=== PATIENT | male | born 1965 | race Caucasian/White ===

== ENCOUNTER 2018-07-29 10:18 | Inpatient (IN) | payer BC, OTHER ==
[~2018-07-29] VITALS: Ht 170.2 cm; Wt 77.1 kg
--- NOTE | 2018-07-29 18:43 | NUR ---
PRE ASSESSMENT: A 52 year old man in intake with flushed complexion. Steady gait noted. BP 144/93 P 120 R 16 O2sat 95% He denies allergies but states Codeine upsets his stomach. He denies seizure Hx. He reports using Ambien 10 mg PO nightly x 2 years. Last used last night. he repoirts drinking 1 liter daily of Vodka daily and starts in the morning. he had 3 days of detox 3 months ago but otherwise has been drinking in this pattern for 2 years. He reports taking Percocet 10/325 mg twice a day for 2 weeks for dental work. He reports smoking 5 marijuana joints daily in this pattern for 2 years. He last drank at 3 am and smoked marijuana at the same time. Percocet last use was yesterday morning.[facility].
--- NOTE | 2018-07-29 20:25 | NUR ---
PRN Valium and Toradol IM administration Patient is anxious, restless, irritable, agitated, pacing, has bilateral hand tremors, hypervebal, rapid speech, emotionally volatile , sad ,impatient and generalized body aches . CIWA 21.
[2018-07-29] MEDS: KETOROLAC TROMETHAMINE 30 MG INJ IM PRN (20:27)
[2018-07-29] MEDS ORDERED: DIAZEPAM 10 MG TABLET PO ONE (20:30)
[2018-07-29] MEDS ORDERED: MAG HYDROX/AL HYDROX/SIMETH 30 ML LIQUID UDC PO PRN (20:45)
[2018-07-29] MEDS ORDERED: MAGNESIUM HYDROXIDE 30 ML LIQUID UDC PO PRN (20:45)
[2018-07-29] MEDS ORDERED: IBUPROFEN 600 MG TABLET PO PRN (20:45)
[2018-07-29] MEDS ORDERED: ONDANSETRON 4 MG/2 ML VIAL IM PRN (20:45)
[2018-07-29] MEDS ORDERED: LOPERAMIDE HCL 2 MG CAPSULE PO PRN ×2 (20:45)
[2018-07-29] MEDS ORDERED: DIAZEPAM 10 MG TABLET PO PRN ×2 (20:45)
[2018-07-29] MEDS ORDERED: THIAMINE HCL 200 MG/2 ML VIAL IM ONE (20:45)
[2018-07-29] MEDS ORDERED: ONDANSETRON ODT 4 MG TAB.RAPDIS SL PRN (20:45)
[2018-07-29] MEDS ORDERED: DIAZEPAM 5 MG TABLET PO PRN (20:45)
[2018-07-29] MEDS ORDERED: CELE200C PO (20:48)
[2018-07-29] MEDS ORDERED: GABA-534 PO (20:48)
[2018-07-29 20:53] LABS: *AMPHETAMINE, URINE NEGATIVE (NEGATIVE); *BARBITURATE, URINE NEGATIVE (NEGATIVE); *CANNABINOID, URINE POSITIVE (NEGATIVE); *COCCAINE, URINE NEGATIVE (NEGATIVE); *OPIATE, URINE NEGATIVE (NEGATIVE); *PHENCYCLIDINE SCREEN,URINE NEGATIVE (NEGATIVE)
--- NOTE | 2018-07-29 20:55 | NUR ---
PRN Toradol IM re-assessment Patient states Toradol IM helpful and effective. Pain is lessened
[2018-07-29] MEDS: GABAPENTIN 300 MG CAPSULE PO SCH (21:05)
[2018-07-29 21:41] LABS: BASOPHILS # (AUTO) 0.1 K/uL (0.0-8.0); BASOPHILS % (AUTO) 1.3 % (0.0-2.0); EOSINOPHILS # (AUTO) 0.1 K/uL (0.0-0.7); EOSINOPHILS % (AUTO) 1.2 % (0.0-7.0); HEMATOCRIT 41.6 % (36.7-47.1); LYMPHOCYTES # (AUTO) 2.7 K/uL (20.0-40.0); LYMPHOCYTES % (AUTO) 37.4 % (20.5-51.5); MEAN CORPUSCULAR HEMOGLOBIN 34.4 uug (23.8-33.4); MEAN CORPUSCULAR HGB CONC 34 g/dL (32.5-36.3); MEAN CORPUSCULAR VOLUME 101.8 fL (73.0-96.2); MONOCYTES # (AUTO) 0.8 K/uL (2.0-10.0); MONOCYTES % (AUTO) 10.5 % (0.0-11.0); NEUTROPHILS # (AUTO) 3.6 K/uL (1.8-8.9); NEUTROPHILS % (AUTO) 49.6 % (38.5-71.5); PLATELET COUNT (AUTO) 254 K/uL (152-348); RED BLOOD CELL COUNT(AUTO) 4.08 MIL/uL (4.06-5.63); WHITE BLOOD COUNT (AUTO) 7.3 K/uL (3.6-10.2)
[2018-07-29 21:54] LABS: ETHANOL < 3 MG/DL (0-0)
[2018-07-29 22:13] LABS: THYROID STIMULATING HORMONE 1.475 mIU/mL (0.358-3.740)
[2018-07-29 22:15] LABS: ALANINE AMINOTRANSFERASE 40 U/L (16-63); ALKALINE PHOSPHATASE 69 U/L (50-136); AMYLASE 30 U/L (25-115); ASPARTATE AMINOTRANSFERASE 20 U/L (15-37); BILIRUBIN,TOTAL 0.3 mg/dL (0.2-1.0); CARBON DIOXIDE 27 mmol/L (21-32); CHLORIDE 104 mmol/L (98-107); CREATININE 1.1 mg/dL (0.6-1.3); GLUCOSE 119 mg/dL (74-106); LIPASE 109 U/L (73-393); MAGNESIUM 1.6 mg/dL (1.8-2.4); POTASSIUM 3.7 mmol/L (3.5-5.1); TOTAL PROTEIN, SERUM 6.6 g/dL (6.4-8.2); UREA NITROGEN, BLOOD 20 mg/dL (7-18)
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
[2018-07-29] MEDS ORDERED: MAGNESIUM OXIDE 400 MG TABLET PO ONE (22:35)
[2018-07-29] MEDS ORDERED: TRAZODONE 50 MG TABLET PO ONE (22:35)
[2018-07-30] VITALS: BP 142/80
--- NOTE | 2018-07-30 | NUR ---
CIWA deferred Patient lying in bed with eyes closed. Respiration even and unlabored. Will continue to monitor.
--- NOTE | 2018-07-30 03:55 | NUR ---
[facility] assessment/Behavior note Patient is anxious, restless, irritable, agitated, flushed face and has bilateral hand tremors. Patient was disrespectful and argumentative with staff when he was told that he can't wear his robe downstairs. Patient was also turning the volume of the TV way too high. Educate patient on unit and smoking policies. Addendum: 07/30/18 at 0651 by DEIRDER CONNORS LVN [facility] 18
[2018-07-30 04:00] VITALS: BP 153/94
[2018-07-30] MEDS: KETOROLAC TROMETHAMINE 30 MG INJ IM PRN (04:00)
--- NOTE | 2018-07-30 04:00 | NUR ---
PRN Valium and Toradol IM administration Patient is anxious, restless, irritable, agitated, flushed face and has bilateral hand tremors. Patient c/o generalized body aches. CIWA 18.
--- NOTE | 2018-07-30 04:30 | NUR ---
PRN Toradol IM re-assessment Patient states Toradol helpful and effective. Pain lessened
--- NOTE | 2018-07-30 05:00 | NUR ---
[facility] assessment / Valium re-assessment Patient in the room. Patient states Valium helpful and effective. Still anxious but will try to go back to sleep. Addendum: 07/30/18 at 0657 by DEIRDRE CONNORS LVN [facility] 11 at this time.
--- NOTE | 2018-07-30 07:12 | NUR ---
End of shift note Patient slept 4 hours. Fluid intake 2,037. Patient alert and oriented x 4. Patient presented with anxiety, restlessness, irritability, agitation, argumentative, impatient, demanding and impatient. Patient's CIWA upon admission was 21. He was c/o generalized body aches. One time Valium and Toradol IM given, effective. CIWA went down to 14. At 0355, patient woke up anxious, restless , irritable, agitated and c/o body aches. PRN Valium and Toradol IM given. CIWA 18. CIWA went down to 11. Patient report PMH of sleep apnea but refused to use hospital C-PAP. Educate patient on unit policies. Encouraged fluids. Will continue to monitor.
[2018-07-30] MEDS ORDERED: 5 DAY TAPER OF LORAZEPAM -SERENITY PROTOCOL PO PRN (07:15)
--- NOTE | 2018-07-30 07:30 | NUR ---
Start of Shift Head Pumper received report on 52 year old male admitted to [facility] on 07/29/18 for medical management of ETOH, Opiate and Ambien withdrawal. Pt endorses allergies to Codeine, full code and regular diet. PMH to include sleep apnea, and multiple surgeries. Pt to be started an Ativan taper this morning, last CIWA 11. Pt had a OT order of 20 mg of Valium and PRN Toradol IM(Pain) x2 and 20mg Valium(withdrawals) on NOC, per report. Head Pumper encounters pt at nurses station. Pt is A/O x4 and makes his needs known. Pt is irritable, angry and easily agitated. Pt is demanding and entitled. Pt complains of pain and , I am withdrawing. Pt focused on pain medication. Pt with an angry affect and congruent mood. Clear thought and speech process. Bed in low position, with wheels locked and side rails up x2. Will continue to monitor, support and encourage according to plan of care.
--- NOTE | 2018-07-30 08:00 | NUR ---
CIWA 12 Pt is irritable, anxious, restless, tremulous and diaphoretic with complaints of generalized body aches. Will continue to monitor, support and encourage according to plan of care.
[2018-07-30 08:07] VITALS: BP 136/93
[2018-07-30] MEDS: THIAMINE HCL 100 MG TABLET PO SCH (08:17)
[2018-07-30] MEDS: MULTIVITAMINS,THERAPEUTIC TABLET PO SCH (08:17)
[2018-07-30] MEDS: FOLIC ACID 1 MG TABLET PO SCH (08:17)
[2018-07-30] MEDS: GABAPENTIN 300 MG CAPSULE PO SCH ×3 (08:17→17:00)
[2018-07-30] MEDS ORDERED: LORAZEPAM 1 MG TABLET PO SCH (09:00)
[2018-07-30] MEDS ORDERED: 5 DAY TAPER VALIUM-SERENITY PROTOCOL PO PRN (09:00)
[2018-07-30] MEDS ORDERED: MAGNESIUM OXIDE 400 MG TABLET PO ONE (09:00)
[2018-07-30] MEDS ORDERED: TUBERCULIN,PURIF.PROT.DERIV. 5 TU/0.1 ML TEST ID ONE (09:00)
[2018-07-30 12:45] VITALS: BP 131/86
--- NOTE | 2018-07-30 13:03 | NUR ---
CIWA 16 Pt is diaphoretic, tremulous, anxious, restless and has complaints of nausea and tactile hallucinations. Will continue to monitor, support and encourage according to plan of care.
[2018-07-30] MEDS ORDERED: 3 DAY TAPER OF VALIUM-SERENITY PROTOCOL PO PRN (13:15)
[2018-07-30] MEDS: DIAZEPAM 10 MG TABLET PO SCH ×2 (14:29→20:07)
[2018-07-30] MEDS: CELECOXIB 200 MG CAPSULE PO PRN ×2 (14:29→23:17)
[2018-07-30] MEDS ORDERED: KETOROLAC TROMETHAMINE 30 MG INJ IM PRN (14:30)
[2018-07-30] MEDS ORDERED: DIAZEPAM 5 MG TABLET PO PRN (14:30)
[2018-07-30] MEDS ORDERED: DIAZEPAM 10 MG TABLET PO PRN ×2 (14:30)
[2018-07-30] MEDS: HYDROXYZINE PAMOATE 25 MG CAPSULE PO PRN (14:32)
[2018-07-30] MEDS: CLONIDINE HCL 0.1 MG TABLET PO PRN (14:33)
--- NOTE | 2018-07-30 14:33 | NUR ---
PRN Medication Pt. in room presenting with anxiety and agitation. Pt. given PRN clonidine and vistaril at this time to manage withdrawal symptoms. Will continue to monitor pt.'s behavior for safety, and medication effectiveness.
[2018-07-30] MEDS: KETOROLAC TROMETHAMINE 60 MG INJ IM PRN (15:21)
--- NOTE | 2018-07-30 15:21 | NUR ---
PRN Medication and Re-Assessment Pt. in room and reports a decreased in anxiety but reports 8/10 back pain. PRN Toradol Im given at this time to manage pain. Will continue to monitor pt. for safety and medication effectiveness.
[2018-07-30 16:00] VITALS: BP 122/76
--- NOTE | 2018-07-30 16:00 | NUR ---
CIWA deferred/Medication Re-Assessment Pt. in room laying in bed with his eyes closed. No signs of SOB noted. CIWA assessment deferred. Toradol medication effective. Will continue to monitor pt. for safety.
--- NOTE | 2018-07-30 19:21 | NUR ---
End of Shift Note Pt. is a 52 y/o male admitted for the medically managed withdrawal from ETOH. Pt. was initially placed on an ativan taper to manage withdrawal symptoms but was re-assessed today by MD and switched to a valium taper. PRN vistaril, celebrex, clonidine and toradol given to manage withdrawal symptoms. Pt. presented with anxiety, agitation and restlessness throughout shift. Safety measures in place. Will endorse pt.'s care to oncoming shift.
--- NOTE | 2018-07-30 19:24 | NUR ---
Start of shift note Received report from day shift nurse. Pt is a 52 yo male, A+Ox4, presenting to [facility] for medically supervised ETOH/Opiate withdrawal. Pt noted with anger, agitation, anxiety, restlessness, and irritability. Pt has HX of anxiety, depression, PTSD, bipolar, and sleep apnea which will be monitored during shift. Pt is on 5 day Valium taper, tolerated well. Respirations even and unlabored. Will continue to monitor.
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
[2018-07-30] MEDS: SERTRALINE HCL 100 MG TABLET PO SCH (20:07)
[2018-07-30 20:11] VITALS: BP 127/79
--- NOTE | 2018-07-30 20:11 | NUR ---
CIWA Assessment CIWA: 13. Pt noted with fine tremors, sweat on brow, anxiety, agitation, and itchiness. Respirations even and unlabored. Will continue to monitor.
[2018-07-30] MEDS: diphenhydrAMINE 50 MG CAPSULE PO PRN (23:16)
--- NOTE | 2018-07-30 23:16 | NUR ---
PRN Benadryl and Celebrex Pt c/o generalized pain 6/10 and inability to sleep. PRN Benadryl and Celebrex given and tolerated well. Will reassess within 1 HR. Will continue to monitor.
--- NOTE | 2018-07-31 00:16 | NUR ---
PRN Benadryl and Celebrex Reassessment Medications effective. Pt is resting well in bed. Pt expresses a reduction of pain to 3/10. No s/s of ASE noted at this time. Respirations even and unlabored. Will continue to monitor.
--- NOTE | 2018-07-31 00:54 | NUR ---
V/S refused and CIWA Assessment deferred for sleep. Respirations even and unlabored. Will continue to monitor.
[2018-07-31] MEDS: KETOROLAC TROMETHAMINE 60 MG INJ IM PRN (03:40)
--- NOTE | 2018-07-31 03:40 | NUR ---
PRN Toradol Pt c/o back pain 05/16 and requested for PRN Toradol. Medication given and tolerated well. Will reassess within 1 HR. Will continue to monitor.
--- NOTE | 2018-07-31 04:15 | NUR ---
PRN Toradol Reassessment Pt expresses reduction of back pain to 4/10. No s/s of ASE noted at this time. Respirations even and unlabored. Will continue to monitor.
--- NOTE | 2018-07-31 04:47 | NUR ---
V/S refused and CIWA Assessment deferred for sleep. Respirations even and unlabored. Will continue to monitor.
--- NOTE | 2018-07-31 06:49 | NUR ---
End of shift note Pt was continuously noted with irritability, anger, restlessness, anxiety, and agitation. Pt remained in room for majority of shift except to get food from kitchen. Pt remained mildly cooperative and compliant with all aspects of treatment. Pt was given PRN Benadryl and Celebrex @2316 and PRN Toradol @0340. Pt remains on 3 day Valium taper, tolerated well. Pt slept for a total of 6 HRS. Last CIWA: 13 @2010. Respirations even and unlabored. Will endorse to day shift nurse.
[2018-07-31 08:00] VITALS: BP 162/105
--- NOTE | 2018-07-31 08:00 | NUR ---
START OF SHIFT Pt 52 y/o male admitted for etoh withdrawal. Pt received in room awake. Pt alert and oriented to name, place, and time. Perrla. Skin warm and moist to touch. Respirations even and unlabored. Appears disheveled and unkempt. Food all over the floor, scattered. Clothes and empty drink bottles scattered throughout the room. Ketchup on door handles noted. Encouraged to maintain safety. Anxious and restless. Raising voice and said, " No! You're not my nurse! he said!", after introducing myself to pt this morning. Very agitated and irritable. Ciwa=14 @0800. It was reported that pt slept for 6 hours last night. Last ciwa=13 @ 1999. Pt is on a 3 day valium taper and is on day 2. Bed on lowest position with side rails x 2 up for safety. Call light within reach.
--- NOTE | 2018-07-31 08:00 | NUR ---
CIWA ASSESSMENT CIWA=14. Anxious and restless. Hyperverbal and pressured speech. Very agitated and restless. Complaints of generalized discomfort and body aches. Bilateral hand tremors noted.
[2018-07-31] MEDS: CELECOXIB 200 MG CAPSULE PO PRN (08:20)
[2018-07-31] MEDS: DIAZEPAM 5 MG TABLET PO SCH ×3 (08:20→20:09)
[2018-07-31] MEDS: CLONIDINE HCL 0.1 MG TABLET PO PRN (08:21)
[2018-07-31] MEDS: GABAPENTIN 300 MG CAPSULE PO SCH ×3 (08:21→17:12)
[2018-07-31] MEDS: HYDROXYZINE PAMOATE 25 MG CAPSULE PO PRN (08:21)
--- NOTE | 2018-07-31 08:24 | NUR ---
PRN CATAPRES CELEBREX VISTARIL xp=490/105. Catapres po prn per MD order given. Complaints of generalized arthritic pain 03/16. Celebrex po prn per MD order given Anxious and restless. Agitated and irritable. Vistaril po prn per MD order given and tolerated well.
[2018-07-31] MEDS: THIAMINE HCL 100 MG TABLET PO SCH (09:00)
[2018-07-31] MEDS: FOLIC ACID 1 MG TABLET PO SCH (09:00)
[2018-07-31] MEDS: MULTIVITAMINS,THERAPEUTIC TABLET PO SCH (09:00)
[2018-07-31] MEDS ORDERED: LORAZEPAM 1 MG TABLET PO SCH (09:00)
--- NOTE | 2018-07-31 09:24 | NUR ---
PRN CELEBREX VISTARIL CATAPRES EVAL cs=884/92. Pt states vistaril slightly effective Pt states pain /10.
--- NOTE | 2018-07-31 10:50 | NUR ---
Therapist prompted client to attend group therapy.
[2018-07-31 12:00] VITALS: BP 113/92
--- NOTE | 2018-07-31 12:00 | NUR ---
CIWA ASSESSMENT ciwa=14. Bilateral hand tremors. Anxious and restless. Pacing. Irritable and agitated. Periodically yells at staff. Observed cursing at self in room. Complaints of generalized discomfort.
--- NOTE | 2018-07-31 13:18 | NUR ---
NSG ENTRY Pt yelling in hallway, " these aren't my clothes! HELLO! HELLO! HELLO!", as he was carrying clothes and just the clothes on the floor of the hallway, then turned around and walked back to room continuing to yell, " incompetence! Stupidity!". Irrationale, would not let staff speak and pt just kept talking over staff. When pt was back in room, he continued to yell and throw more clothes on the floor and by the trash can in room. Hard to redirect.
[2018-07-31] MEDS ORDERED: QUETIAPINE FUMARATE 100 MG TABLET PO ONE (13:45)
[2018-07-31 14:39] LABS: HEPATITIS B SURFACE AG Negative (Negative)
[2018-07-31 16:00] VITALS: BP 118/78
--- NOTE | 2018-07-31 16:00 | NUR ---
CIWA ASSESSMENT CIWA=14. Anxious and restless. Hyperverbal and pressured speech. Periods of agitation and irritability. Complaints of generalized discomfort and body aches. Bilateral hand tremors noted. Intermittent perspiration.
--- NOTE | 2018-07-31 18:44 | NUR ---
END OF SHIFT Pt 52 y/o male admitted for etoh withdrawal. Pt alert and oriented to name, place, and time. Perrla. Skin warm and moist to touch. Respirations even and unlabored. Appears disheveled and unkempt. Food, clothes, and empty drink bottles scattered throughout the room. Encouraged to maintain hygiene. Anxious and restless. Periods of agitation and irritability today. Isolative to room with minimal peer interaction. Pt selective with group activity. Ciwa=14 @1600. Pt is on a 3 day valium taper and is on day 2. Bed on lowest position with side rails x 2 up for safety. Call light within reach.
--- NOTE | 2018-07-31 19:14 | NUR ---
Start of shift note Received report from day shift nurse. Pt is a 52 yo male, A+Ox4, presenting to [facility] for medically supervised ETOH/Opiate withdrawal. Pt noted with restlessness, anxiety, and agitation. Pt has HX Of anxiety, depression, PTSD, bipolar disorder, inguinal hernia, sleep apnea, and multiple surgeries which will be monitored during shift. Pt is on 3 day Valium taper, tolerated well. Respirations even and unlabored. Will continue to monitor.
[2018-07-31] MEDS: SERTRALINE HCL 100 MG TABLET PO SCH (20:09)
[2018-07-31 20:14] VITALS: BP 121/64
--- NOTE | 2018-07-31 20:14 | NUR ---
CIWA Assessment CIWA: 11. Pt noted with fine tremors, sweat, anxiety, and agitation. Respirations even and unlabored. Will continue to monitor.
--- NOTE | 2018-08-01 00:38 | NUR ---
V/S refused and CIWA Assessment deferred for sleep. Respirations even and unlabored. Will continue to monitor.
[2018-08-01] MEDS: KETOROLAC TROMETHAMINE 60 MG INJ IM PRN ×2 (02:30→16:32)
[2018-08-01] MEDS: diphenhydrAMINE 50 MG CAPSULE PO PRN (02:30)
--- NOTE | 2018-08-01 02:30 | NUR ---
PRN Benadryl and Toradol Pt c/o inability to sleep and upper back/neck pain 05/16 and requested for PRN Benadryl and Toradol. Medications given and tolerated well. Will reassess within 1 HR. Will continue to monitor.
--- NOTE | 2018-08-01 03:29 | NUR ---
PRN Benadryl and Toradol Reassessment Medications effective. Pt expresses reduction of pain to 4/10. Pt is resting well in bed. No s/s of ASE noted at this time. Respirations even and unlabored. Will continue to monitor.
--- NOTE | 2018-08-01 04:48 | NUR ---
V/S refused and CIWA Assessment deferred for sleep. Respirations even and unlabored. Will continue to monitor.
--- NOTE | 2018-08-01 07:00 | NUR ---
End of shift note Pt was continuously noted with restlessness, anxiety, and agitation. Pt remained in room for majority of shift except to get food from kitchen and to go smoke on smoking patio. Pt remained cooperative and compliant with all aspects of treatment. Pt was given PRN Benadryl and Toradol @0230. Pt remains on 3 day Valium taper, tolerated well. Pt slept for a total of 6 HRS. Last CIWA: 11 @2013. Respirations even and unlabored. Will endorse to day shift nurse.
[2018-08-01 08:00] VITALS: BP 157/101
--- NOTE | 2018-08-01 08:00 | NUR ---
START OF SHIFT Pt 52 y/o male admitted for etoh withdrawal. Pt received in room on bed awake watching television. Pt alert and oriented to name, place, and time. Perrla. Resppirations even and unlabored. Appears disheveled and unkempt. Clothes, food wrappings, blankets, and drink bottles ( both full and empty) scattered throughout the floor. Encouraged to maintain hygiene. Anxious and restless. Irritable and agitated. Pressured speech. Labile. Bilateral hand tremors noted. Generalized body aches and discomfort. ciwa=12@0800. It was reported that pt slept for 6 hours last night. Pt is on a 3 day valium taper and is on day 3. Last ciwa =11 @1999. Bed on lowest position with side rails x2 up for safety. Call light within reach.
[2018-08-01] MEDS: CELECOXIB 200 MG CAPSULE PO PRN ×2 (08:27→16:27)
[2018-08-01] MEDS: GABAPENTIN 300 MG CAPSULE PO SCH ×3 (08:27→16:25)
[2018-08-01] MEDS: HYDROXYZINE PAMOATE 25 MG CAPSULE PO PRN (08:27)
[2018-08-01] MEDS: CLONIDINE HCL 0.1 MG TABLET PO PRN (08:28)
[2018-08-01] MEDS: QUETIAPINE FUMARATE 25 MG TABLET PO PRN ×3 (08:32→16:37)
--- NOTE | 2018-08-01 08:32 | NUR ---
PRN SEROQUEL Pt agitated and irritable. Seroquel prn per MD order given .
--- NOTE | 2018-08-01 08:35 | NUR ---
PRN CELEBREX VISTARIL CATAPRES Pt with c/o arhritic pain 03/16. Celebrex po prn per MD order given and tolerated well. Anxious and restless. Vistaril po prn per MD order given. lm=024/105. catapres po prn per MD order given.
[2018-08-01] MEDS ORDERED: LORAZEPAM 1 MG TABLET PO SCH (09:00)
[2018-08-01] MEDS ORDERED: DIAZEPAM 5 MG TABLET PO SCH (09:00)
[2018-08-01] MEDS: THIAMINE HCL 100 MG TABLET PO SCH (09:00)
[2018-08-01] MEDS: MULTIVITAMINS,THERAPEUTIC TABLET PO SCH (09:00)
[2018-08-01] MEDS: FOLIC ACID 1 MG TABLET PO SCH (09:00)
--- NOTE | 2018-08-01 09:32 | NUR ---
PRN SEROQUEL EVAL pt states medication effective.
[2018-08-01 12:00] VITALS: BP 136/92
--- NOTE | 2018-08-01 12:00 | NUR ---
CIWA ASSESSMENT ciwa=12. Bilateral hand tremors noted. Intermittent perspiration. Anxious and restless. Pressured speech. Irritable and agitated.
--- NOTE | 2018-08-01 12:38 | NUR ---
PRN SEROQUEL Pt agitated and irritable. Seroquel po prn per MD order given .
--- NOTE | 2018-08-01 13:38 | NUR ---
PRN SEROQUEL EVAL Pt states medication effective.
[2018-08-01] MEDS ORDERED: DIAZEPAM 5 MG TABLET PO PRN (15:15)
[2018-08-01] MEDS: DIAZEPAM 5 MG TABLET PO SCH ×2 (15:39→23:47)
[2018-08-01 16:00] VITALS: BP 137/89
--- NOTE | 2018-08-01 16:00 | NUR ---
CIWA ASSESSMENT ciwa=12. Anxious and restless. Pressured speech. Pacing. Easily irritable and agitated. Intermittent perspiration. Bilateral hand tremors. Complaints of generalized discomfort and body aches.
--- NOTE | 2018-08-01 18:25 | NUR ---
END OF SHIFT Pt 52 y/o male admitted for etoh withdrawal. Pt alert and oriented to name, place, and time. Perrla. Skin warm and moist to touch. Respirations even and unlabored. Appears disheveled and unkempt. Food, clothes, and empty drink bottles scattered throughout the room floor. Malodorous. Encouraged to maintain hygiene. Anxious and restless. Periods of irritability today. Pacing. Bilateral hand tremors. Intermittent perspiration Isolative to room with minimal peer interaction. Low motivation for self care. Pt selective with group activity. Ciwa=12 @1600. Pt is on a modified valium taper and is on day 3. Bed on lowest position with side rails x 2 up for safety. Call light within reach.
--- NOTE | 2018-08-01 19:12 | NUR ---
Start of shift note Received report from day shift nurse. Pt is a 52 yo male, A+Ox4, presenting to [facility] for medically supervised ETOH/Opiate withdrawal. Pt noted with fatigue, anxiety, and agitation. Pt has HX of anxiety, depression, PTSD, bipolar disorder, inguinal hernia, sleep apnea, and multiple surgeries which will be monitored during shift. Pt is on 3 day Valium taper, tolerated well. Respirations even and unlabored. Will continue to monitor.
[2018-08-01 20:12] VITALS: BP 142/92
--- NOTE | 2018-08-01 20:12 | NUR ---
CIWA Assessment CIWA: 11. Pt noted with fine tremors, sweat on brow, anxiety, and agitation. Respirations even and unlabored. Will continue to monitor.
[2018-08-01] MEDS: SERTRALINE HCL 100 MG TABLET PO SCH (23:47)
--- NOTE | 2018-08-02 00:57 | NUR ---
V/S refused and CIWA Assessment deferred for sleep. Respirations even and unlabored. Will continue to monitor.
--- NOTE | 2018-08-02 04:20 | NUR ---
V/S refused and CIWA assessment deferred for sleep. Respirations even and unlabored. Will continue to monitor.
--- NOTE | 2018-08-02 07:00 | NUR ---
End of shift note Pt was continuously noted with fatigue, agitation, and anxiety. Pt remained in room for majority of shift except to go smoke on smoking patio and to get food from kitchen. Pt remained cooperative and compliant with all aspects of treatment. Pt was not given any PRN medications during shift. Pt remains on 3 day Valium taper, tolerated well. Pt slept for a total of 7 HRS. Last CIWA: 11 @2011. Respirations even and unlabored. Will endorse to day shift nurse.
--- NOTE | 2018-08-02 07:15 | NUR ---
Start of Shift Pt. is a 52 y/o male admitted for the medically managed withdrawal from ETOH. Pt. is currently on a valium taper to manage his withdrawal symptoms. Endorse from previous shift pt. presented anxiety, and agitation. Received pt. in room. Encourage pt. to verbalize concerns and emotions. Educated pt. on treatment plan and medication regiment. Pt. stated Dude I dont care about any of that, I need to go down to smoke. Safety measures in place. Will continue to monitor pt.s behavior for safety.
[2018-08-02 08:00] VITALS: BP 107/67
--- NOTE | 2018-08-02 08:00 | NUR ---
CIWA Assessment CIWA of 10. Pt. in room presenting with anxiety and agitation. Will give medications as ordered. Will continue to monitor pt.'s behavior for safety.
[2018-08-02] MEDS: QUETIAPINE FUMARATE 25 MG TABLET PO PRN ×2 (08:47→21:16)
[2018-08-02] MEDS: GABAPENTIN 300 MG CAPSULE PO SCH ×3 (08:47→16:37)
[2018-08-02] MEDS: THIAMINE HCL 100 MG TABLET PO SCH (08:47)
[2018-08-02] MEDS: DIAZEPAM 5 MG TABLET PO PRN ×2 (08:47→21:22)
[2018-08-02] MEDS: MULTIVITAMINS,THERAPEUTIC TABLET PO SCH (08:47)
[2018-08-02] MEDS: FOLIC ACID 1 MG TABLET PO SCH (08:47)
[2018-08-02] MEDS: HYDROXYZINE PAMOATE 25 MG CAPSULE PO PRN (08:47)
[2018-08-02] MEDS: CLONIDINE HCL 0.1 MG TABLET PO PRN ×2 (08:47→21:16)
[2018-08-02] MEDS: KETOROLAC TROMETHAMINE 60 MG INJ IM PRN (08:49)
--- NOTE | 2018-08-02 08:50 | NUR ---
PRN Medication Pt. in room complaining of increased anxiety and low back pain. PRN Valium, Vistaril, Clonidine, Seroquel, and Toradol given at this time per MD order to manage pt.'s symptoms. Will continue to monitor pt.'s behavior for safety and medication effectiveness.
[2018-08-02] MEDS ORDERED: LORAZEPAM 1 MG TABLET PO SCH (09:00)
--- NOTE | 2018-08-02 09:30 | NUR ---
PRN Re-Assessment Pt. in room laying down watching television in his bed. Medication effective. Will continue to monitor pt.'s behavior for safety.
--- NOTE | 2018-08-02 11:11 | NUR ---
Prompted Group Explained risk and benefits of not attending group X 3. Pt. still refused to attend. Will continue to monitor pt.'s behavior for safety
[2018-08-02] MEDS ORDERED: HYDROXYZINE PAMOATE 25 MG CAPSULE PO ONE (11:15)
[2018-08-02 12:00] VITALS: BP 134/87
--- NOTE | 2018-08-02 12:00 | NUR ---
CIWA Assessment CIWA of 10. Pt. in room presenting with anxiety and agitation. Pt. compliant with medication regiment. Will continue to monitor pt.'s behavior for safety.
[2018-08-02 16:00] VITALS: BP 150/90
--- NOTE | 2018-08-02 16:00 | NUR ---
CIWA Assessment CIWA of 8. Pt. in room presenting with anxiety and agitation. Pt. compliant with medication regiment. Will continue to monitor pt.'s behavior for safety.
[2018-08-02] MEDS: CELECOXIB 200 MG CAPSULE PO PRN (16:36)
--- NOTE | 2018-08-02 16:36 | NUR ---
PRN Medication Pt. reporting increased discomfort from his arthritis. PRN Celebrex at this time to manage symptoms. Will continue to monitor pt.'s behavior for safety and medication effectiveness.
--- NOTE | 2018-08-02 17:15 | NUR ---
PRN Re-Assessment Pt. reports a decreased in discomfort. Medication effective. Will continue to monitor pt.'s behavior for safety.
--- NOTE | 2018-08-02 19:07 | NUR ---
Start of Shift Pt. is a 52 y/o male admitted for the medically managed withdrawal from ETOH. Pt. completed his valium taper and is currently only PRN medications. Throughout shift pt. presented anxiety, and agitation. Pt. compliant with treatment plan and medication regiment. Safety measures in place. Will endorse pt.s care to oncoming shift.
--- NOTE | 2018-08-02 19:50 | NUR ---
Start of Shift Note Received a 52 y/o male px, admitted for medically supervised withdrawal from ETOH, benzo and opiates. He also uses marijuana. He was placed on 3 day Valium taper, started on 07/30/2018. Last reported CIWA 8 by AM shift nurse. During the rounds at 1950, px is awake on bed in fowlers position, watching TV. Px appears anxious and depressed. He is disheveled and unshaven. Snacks and different kind of drinks noted on top of the bed side table. He states that his anxiety is 7/10 with LBP of 8/10. Px asked for sleeping medication later tonight. Bed on lowest position, side rails up 2x and call light within reach. Well continue to monitor.
[2018-08-02 20:00] VITALS: BP 154/93
--- NOTE | 2018-08-02 20:00 | NUR ---
CIWA 11 Upon assessment, px appears anxious and depressed. He states that his anxiety is 7/10 with LBP of 8/10. Px asked for sleeping medication later tonight. will continue to monitor.
[2018-08-02] MEDS: KETOROLAC TROMETHAMINE 30 MG INJ IM PRN (21:16)
[2018-08-02] MEDS: SERTRALINE HCL 100 MG TABLET PO SCH (21:16)
--- NOTE | 2018-08-02 21:16 | NUR ---
PRN medications He received Toradol 30 mg IM for LBP of 05/16, Seroquel 50 mg PO for insomnia, Clonidine 0.1 mg PO for anxiety and at 2121, he received Valium 5 mg PO for agitation. will continue to monitor
--- NOTE | 2018-08-02 21:50 | NUR ---
PRN Toradol reassessment Px states that his LBP improved a little, from 8/10 to 610. will continue to monitor
--- NOTE | 2018-08-02 22:30 | NUR ---
PRN Seroquel, Valium and Clonidine reassessment On reassessment, don is still awake on bed. He states that his anxiety improved a little from 7/10 to 5-6/10. He is about to sleep in a little while. will continue to monitor
--- NOTE | 2018-08-03 | NUR ---
CIWA deferred CIWA deferred due to the px is asleep and he refused VS. To reassess if the px is awake per doctor's order. will continue to monitor
[2018-08-03] MEDS: diphenhydrAMINE 50 MG CAPSULE PO PRN (01:58)
[2018-08-03] MEDS: HYDROXYZINE PAMOATE 25 MG CAPSULE PO PRN ×2 (01:58→08:28)
--- NOTE | 2018-08-03 01:58 | NUR ---
PRN Benadryl and Vistaril Px received Benadryl 50 mg PO and Vistaril 50 mg PO for insomnia. To reassess after an hour
[2018-08-03] MEDS: QUETIAPINE FUMARATE 25 MG TABLET PO PRN ×2 (02:24→14:36)
--- NOTE | 2018-08-03 02:24 | NUR ---
PRN Seroquel Px demanded to get more Benadryl. Px states that he is taking 4 capsules of Benadryl at home and 1 capsule will not make him sleepy. Seroquel 50 mg q4H PO given for insomnia. to reassess after an hour
--- NOTE | 2018-08-03 07:05 | NUR ---
End of Shift Note During the shift at 2115, px received Toradol 30 mg IM, Seroquel 50 mg PO for insomnia and Clonidine 0.1 mg PO fro anxiety. They were effective. At 2121, he received valium 5 mg PO for agitation, it was effective. At 157, he woke up and asked for sleeping medications, he received Benadryl 50 mg PO and Vistaril 50 mg PO but demanded more. At 223, he received Seroquel 50 mg PO. Px slept for total of 7 hours. Oral intake of 1500 ml, voided 3x with 1x BM. Last CIWA 10. Bed on lowest position, side rails up on the left side and call light within reach. Well continue to monitor.
--- NOTE | 2018-08-03 07:30 | NUR ---
Start Of Shift Patient is a 52 yr old male who was admitted to [facility] on 07/29/18 for a medically supervised withdrawal from ETOH and Opiates and also states he was using Ambien and Marijuana, he has completed a 3 day Valium taper and modified Ativan taper. PRN medications given on PM shift: Toradol, Seroquel x2, Clonidine, Benadryl and Vistaril. He slept for 7+ hours and is currently asleep in bed at this time, breathing even and unlabored. Last CIWA was 10. Continue to follow MD plan of care and offer support and encouragement.
[2018-08-03 08:00] VITALS: BP 149/103
[2018-08-03] MEDS: THIAMINE HCL 100 MG TABLET PO SCH (08:27)
[2018-08-03] MEDS: GABAPENTIN 300 MG CAPSULE PO SCH ×3 (08:27→16:36)
[2018-08-03] MEDS: CELECOXIB 200 MG CAPSULE PO PRN ×2 (08:27→22:06)
[2018-08-03] MEDS: FOLIC ACID 1 MG TABLET PO SCH (08:28)
[2018-08-03] MEDS: CLONIDINE HCL 0.1 MG TABLET PO PRN ×2 (08:28→22:07)
[2018-08-03] MEDS: MULTIVITAMINS,THERAPEUTIC TABLET PO SCH (08:28)
--- NOTE | 2018-08-03 08:30 | NUR ---
CIWA 11 patient presents with restlessness, excitability, irritability, hyperverbal, increased BP Clonidine 0.1mg PO given for BP 149/103 Vistaril 50mg PO given for increased anxiety/irritability Celebrex PO given for C/O BACK PAIN
--- NOTE | 2018-08-03 08:30 | NUR ---
PRN Celebrex 200mg PO, Vistaril 50mg PO and Clonidine 0.1mg PO given for increased excitability, irritability and BP 140/103 will reassess
[2018-08-03] MEDS ORDERED: LORAZEPAM 1 MG TABLET PO SCH (09:00)
--- NOTE | 2018-08-03 09:30 | NUR ---
PRN Reassess Patient states the medications were effective, anxiety has decreased, BP 138/89
[2018-08-03 12:00] VITALS: BP 143/91
--- NOTE | 2018-08-03 12:00 | NUR ---
CIWA 11 patient presents with restlessness, excitability, irritability, hyperverbal,
[2018-08-03] MEDS ORDERED: SERT100T12 PO (13:34)
--- NOTE | 2018-08-03 14:38 | NUR ---
PRN Seroquel Seroquel 50mg PO given for agitation and irritability
--- NOTE | 2018-08-03 15:38 | NUR ---
PRN Reassess Seroquel 50mg PO effective for reducing anger outbursts and agitation
[2018-08-03 16:00] VITALS: BP 122/96
--- NOTE | 2018-08-03 16:00 | NUR ---
CIWA 11 patient presents with restlessness, excitability, irritability, hyperverbal, Seroquel 50mg PO PRN was given @ 1440 with positive effects in calming patient down and reducing agitation
[2018-08-03] MEDS: KETOROLAC TROMETHAMINE 30 MG INJ IM PRN (17:52)
--- NOTE | 2018-08-03 17:55 | NUR ---
PRN Toradol Toradol 30mg IM given in right deltoid for body/back pain 05/16
--- NOTE | 2018-08-03 18:46 | NUR ---
PRN Reassess Patient states Toradol 30mg IM was effective , pain level now 3/10
--- NOTE | 2018-08-03 18:49 | NUR ---
End Of Shift Patient is a 52 yr old male who was admitted to [facility] on 07/29/18 for a medically supervised withdrawal from ETOH and Opiates and also states he was using Ambien and Marijuana, he has completed a 3 day Valium taper and modified Ativan taper. PRN medications given on PM shift: Celebrex, Clonidine, Vistaril, Toradol and Seroquel. Patient has been emotionally volatile today, he angers easily and has an explosive temper when he does not get his own way whether it is the wrong food on his tray, not being allowed out to smoke when group is on. He had a fluid intake of 2006 ML, 5 Voids and 0 BM. His last CIWA was 11 @ 1600. He is to be discharged in the AM to " [facility]". Continue to follow MD plan of care . Endorsed to comedian.
--- NOTE | 2018-08-03 19:52 | NUR ---
START OF SHIFT NOTE Rcvd report from outgoing nurse. Pt is a 52 y/o male A/O to person, place, time, and purpose. Pt was admitted for medically supervised withdrawal from ETOH. Pt completed a 3 day Valium taper, that was originally a 5 day Ativan taper per MD. Pt is being discharged on 08/04/18. Pt has been presenting w/ anxiety, flat affect, depressed mood, emotional volatility, agitation, and body aches. PRN Celebrex, Vistaril, Clonidine, and Toradol were given and noted effective by outgoing nurse. Last CIWA 11 @ 1600. Call light is within reach. Pt will continue to be monitored and needs met.
--- NOTE | 2018-08-03 20:02 | NUR ---
CIWA ASSESSMENT CIWA 12. . Pt has been presenting w/ anxiety, flat affect, depressed mood, emotional volatility, agitation, and body aches. V/S: T:97.7, P:87, RR:16, SPO2:99, BP:143/93.
[2018-08-03 20:03] VITALS: BP 143/93
[2018-08-03] MEDS ORDERED: TRAZODONE 50 MG TABLET PO ONE (21:00)
[2018-08-03] MEDS: SERTRALINE HCL 100 MG TABLET PO SCH (22:06)
--- NOTE | 2018-08-03 22:07 | NUR ---
PRN CELEBREX, TRAZODONE, AND CLONIDINE ADMINISTRATION Celebrex 200mg for pain, Trazodone 50mg for sleep/agitation, and Clonidine 0.1mg for elevated BP were given. Pt's BP:149/93. Pt c/o 6/10 body pain and difficulty sleeping. Will reassess pt in 1 hr.
--- NOTE | 2018-08-03 23:07 | NUR ---
PRN CELEBREX, TRAZODONE, AND CLONIDINE REASSESSMENT Pt is in bed w/ his eyes closed. Pt's respirations are unlabored and even.
--- NOTE | 2018-08-04 00:04 | NUR ---
CIWA DEFERRED Pt is in bed w/ his eyes closed. Pt's respirations are unlabored and even.
--- NOTE | 2018-08-04 04:03 | NUR ---
CIWA DEFERRED. V/S REFUSED Pt is in bed w/ his eyes closed. Pt's respirations are unlabored and even.
--- NOTE | 2018-08-04 07:12 | NUR ---
END OF SHIFT NOTE Endorsed pt to oncoming nurse. Pt is a 52 y/o male A/O to person, place, time, and purpose. Pt was admitted for medically supervised withdrawal from ETOH. Pt completed a 3 day Valium taper, that was originally a 5 day Ativan taper per MD. Pt is being discharged on 08/04/18. Pt continues presenting w/ anxiety, flat affect, depressed mood, emotional volatility, agitation, and body aches. Pt denies any S/I or H/I. PRN Celebrex for pain, Clonidine for elevated BP, and Trazodone for sleep/agitation were given and noted effective. Pts fluid intake was 1660ml and he slept for 7hrs. Last CIWA 11 @ 1999. Call light is within reach.
--- NOTE | 2018-08-04 07:17 | NUR ---
Start Of Shift Patient is a 52 yr old male who was admitted to [facility] on 07/29/18 for a medically supervised withdrawal from ETOH and Opiates and also states he was using Ambien and Marijuana, he has completed a 3 day Valium taper and modified Ativan taper and will be discharged to " [facility] " this morning. PRN medications given on PM shift: Clonidine, Celebrex and Trazodone. He slept for 7+ hours and is currently awake and voices no concerns at this time. Last CIWA was 12. Continue to follow MD plan of care and offer support and encouragement.
[2018-08-04 08:00] VITALS: BP 128/90
[2018-08-04 08:19] VITALS: BP 128/90
[2018-08-04] MEDS: THIAMINE HCL 100 MG TABLET PO SCH (08:19)
[2018-08-04] MEDS: GABAPENTIN 300 MG CAPSULE PO SCH (08:19)
[2018-08-04] MEDS: MULTIVITAMINS,THERAPEUTIC TABLET PO SCH (08:19)
[2018-08-04] MEDS: HYDROXYZINE PAMOATE 25 MG CAPSULE PO PRN (08:19)
[2018-08-04] MEDS: FOLIC ACID 1 MG TABLET PO SCH (08:19)
[2018-08-04] MEDS: CLONIDINE HCL 0.1 MG TABLET PO PRN (08:19)
[2018-08-04] MEDS: CELECOXIB 200 MG CAPSULE PO PRN (08:20)
--- NOTE | 2018-08-04 08:20 | NUR ---
CIWA 11 Patient presents with agitation, irritability, back pain , shoulder discomfort PRN Toradol, Celebrex, Vistaril and Clonidine given
[2018-08-04] MEDS: KETOROLAC TROMETHAMINE 30 MG INJ IM PRN (08:24)
--- NOTE | 2018-08-04 08:24 | NUR ---
PRN Toradol 30mg IM given for back and shoulder pain 05/16 Celebrex 200mg PO given for back pain Clonidine and Vistaril 50mg PO given for increased anxiety/irritability
--- NOTE | 2018-08-04 09:24 | NUR ---
PRN Reassess patient states medications were effective, pain level in now 3/10 and anxiety and irritability have decreased.
--- NOTE | 2018-08-04 09:50 | NUR ---
Discharge Note patient signed and dated all DC paperwork, RX and personal belongings placed in zip tied bag. Patient states no SI/HI VS stable, PT ID band removed. Patient ambulated off the unit and was picked up by Private car " [facility] " for transport to " [facility]".
== END 2018-08-04 09:50 | disposition other institution (70) | DRG 895 ==
LOC: SRC 18:21
PROVIDERS: ADMIT Family Medicine Addiction Medicine; ATTEND Family Medicine Addiction Medicine
PROC: HZ2ZZZZ Detoxification Services for Substance Abuse Treatment (ICD-10-PCS; principal; 2018-07-29)
PROC: HZ31ZZZ Individual Counseling for Substance Abuse Treatment, Behavioral (ICD-10-PCS; 2018-07-30)
PROC: HZ41ZZZ Group Counseling for Substance Abuse Treatment, Behavioral (ICD-10-PCS; 2018-08-01)
DX: F10.230 Alcohol dependence with withdrawal, uncomplicated (principal); F13.20 Sedative, hypnotic or anxiolytic dependence, uncomplicated; F11.23 Opioid dependence with withdrawal; Y90.0 Blood alcohol level of less than 20 mg/100 ml; F41.1 Generalized anxiety disorder; F43.10 Post-traumatic stress disorder, unspecified; F17.210 Nicotine dependence, cigarettes, uncomplicated; G47.30 Sleep apnea, unspecified; F12.23 Cannabis dependence with withdrawal; E83.42 Hypomagnesemia; D75.89 Other specified diseases of blood and blood-forming organs; F31.9 Bipolar disorder, unspecified; Z81.1 Family history of alcohol abuse and dependence
CPT/HCPCS: 36415; 70030-TC; 80307; 80349; 83690; 83735; 84443; 85025; 86592; 86705; 86803; 87340; 87806; A4663; G0480; J1885; Q0163